=== PATIENT | female | born 1970 | race Caucasian/White ===

== ENCOUNTER → 2016-07-05 | Outpatient (CLI) | payer MEDICARE, MEDICAID ==
--- NOTE | 2016-07-05 16:44 | REP ---
Pelvic sonography: History: Irregular menstrual bleeding. Comparison CT study is from 03/02/2011. Findings: Transabdominal scanning is performed. Uterine dimensions are normal at 7.9 x 2.6 x 4.6 cm. Endometrial echo 0.3 cm thick and centrally placed. Normal ovaries are seen bilaterally. The right ovary measures 2.1 x 1.2 x 2.1 cm. Left ovary dimensions are 1.7 x 1.3 x 1.4 cm. Impression: Normal pelvic sonogram.
== END ==
LOC: M WHC 12:55
PROVIDERS: ATTEND Nurse Practitioner Family
DX: N92.6 Irregular menstruation, unspecified (principal)

== ENCOUNTER → 2017-12-05 | Outpatient (CLI) | payer MEDICARE, MEDICAID | LOC: M WHC 10:35 | DX: Z12.31 Encounter for screening mammogram for malignant neoplasm of breast (principal); Z01.419 Encounter for gynecological examination (general) (routine) without abnormal findings (principal); Z92.0 Personal history of contraception | CPT/HCPCS: 77067 ==

== ENCOUNTER → 2018-10-03 | Outpatient (CLI) | payer MEDICARE, MEDICAID ==
[2018-10-03 20:10] LABS: BLOOD UREA NITROGEN 14 MG/DL (7-18); CALCIUM LEVEL 8.9 MG/DL (8.5-10.1); CARBON DIOXIDE LEVEL 30 MEQ/L (21-32); CHLORIDE LEVEL 104 MEQ/L (98-107); CREATININE FOR GFR 0.76 MG/DL (0.55-1.30); FREE T4 0.82 NG/DL (0.76-1.46); GLOMERULAR FILTRATION RATE > 60.0 (>58); GLUCOSE, FASTING 81 MG/DL (70-100); POTASSIUM SERUM 4.1 MEQ/L (3.5-5.1); SODIUM LEVEL 140 MEQ/L (136-145)
== END ==
LOC: M WUC 16:11
PROVIDERS: ATTEND Family Medicine
DX: E07.9 Disorder of thyroid, unspecified (principal); E78.5 Hyperlipidemia, unspecified

== ENCOUNTER → 2018-12-03 | Outpatient (CLI) | payer MEDICARE, MEDICAID ==
[2018-12-03 13:52] LABS: FREE T4 0.76 NG/DL (0.76-1.46); THYROID STIMULATING HORMONE 3.5 uIU/ML (0.358-3.740)
== END ==
LOC: M WUC 09:39
PROVIDERS: ATTEND Family Medicine
DX: E07.9 Disorder of thyroid, unspecified (principal)

== ENCOUNTER → 2019-02-11 | Outpatient (CLI) | payer MEDICARE, MEDICAID ==
--- NOTE | 2019-02-11 12:47 | REPMRS ---
Patient History The patient states she had a clinical breast exam in 01/2019. Patient is nulliparous. No known family history of cancer. Taking hormonal contraceptives for 17 years. Digital Woman Screen Mammo: February 11, 2019 - Exam #: [id number] Bilateral CC and MLO view(s) were taken. Technologist: Leesa Enriquez, Technologist Prior study comparison: December 05, 2017, bilateral digital woman screen mammo performed at [facility]. March 28, 2016, digital woman screen mammo performed at [facility]. February 26, 2015, digital woman screen mammo performed at [facility]. FINDINGS: There are scattered fibroglandular densities. There has been no change in the appearance of the mammogram from the prior studies. There is a mild amount of scattered fibroglandular density which is fairly symmetric. There is no interval development of dominant mass, architectural distortion, or grouped microcalcification suggestive of malignancy. 3-D tomosynthesis shows no additional findings. Assessment: BI-RADS/ACR category 1 mammogram. Negative Mammogram. Recommendation Routine screening mammogram of both breasts in 1 year (for women over age 40). This patient's Lifetime Breast Cancer Risk is estimated at 12.8 %. This mammogram was interpreted with the aid of an FDA-approved computer-aided dectection system. Electronically Signed By: Jose Cantu MD 02/11/19 [id number]
== END ==
LOC: M WHC 10:22
PROVIDERS: ATTEND Nurse Practitioner Family
DX: Z12.31 Encounter for screening mammogram for malignant neoplasm of breast (principal); Z92.0 Personal history of contraception
CPT/HCPCS: 77063; 77067; G0463

== ENCOUNTER → 2020-04-14 | Outpatient (CLI) | payer MEDICARE, MEDICAID ==
--- NOTE | 2020-04-14 14:24 | REPMRS ---
Patient History The patient states she had a clinical breast exam in 2019. No known family history of cancer. Taking hormonal contraceptives for 17 years. Digital Woman Screen Mammo: April 14, 2020 - Exam #: [id number] Bilateral CC and MLO view(s) were taken. Technologist: Kirstel Conn, Technologist Prior study comparison: February 11, 2019, bilateral digital woman screen mammo performed at [facility]. December 05, 2017, bilateral digital woman screen mammo performed at [facility]. October 17, 2016, bilateral digital mammo screening bilat, performed at [facility]. FINDINGS: The breast tissue is heterogeneously dense. This may lower the sensitivity of mammography. The Volpara volumetric breast density category is: C. There is a moderate amount of heterogeneously dense fibroglandular tissue which is fairly symmetric. There is no interval development of dominant mass, architectural distortion, or grouped microcalcification typical of malignancy. There has been no change in the appearance of the mammogram from the prior studies. 3-D tomosynthesis shows no additional findings. Assessment: BI-RADS/ACR category 1 mammogram. Negative Mammogram. Recommendation Routine screening mammogram of both breasts in 1 year (for women over age 40). This patient's [facility] Lifetime Breast Cancer RIsk is estimated at 12.6 %. This mammogram was interpreted with the aid of an FDA-approved computer-aided dectection system. Electronically Signed By: Jose Cantu MD 04/14/20 [id number]
== END ==
LOC: M WHC 11:33
PROVIDERS: ATTEND Nurse Practitioner Family
DX: Z12.31 Encounter for screening mammogram for malignant neoplasm of breast (principal); Z92.0 Personal history of contraception

== ENCOUNTER 2020-05-22 15:59 | Emergency (ER) | payer MEDICARE, MEDICAID ==
[~2020-05-22] VITALS: Ht 157.5 cm; Wt 61.8 kg
[2020-05-22] MEDS ORDERED: METOCLOPRAMIDE 10 MG TAB PO ONE (19:15)
--- NOTE | 2020-05-22 19:25 | REPVR ---
PROCEDURE INFORMATION: Exam: CT Head Without Contrast Exam date and time: 05/22/2020 7:09 PM Age: 49 years old Clinical indication: Injury or trauma; Other: Hit head against wall; Blunt trauma (contusions or hematomas); Consciousness not specified; Altered mental status/memory loss; Confusion or disorientation TECHNIQUE: Imaging protocol: Computed tomography of the head without contrast. Radiation optimization: All CT scans at this facility use at least one of these dose optimization techniques: automated exposure control; mA and/or kV adjustment per patient size (includes targeted exams where dose is matched to clinical indication); or iterative reconstruction. COMPARISON: No relevant prior studies available. FINDINGS: Brain: Hyperdense partially calcified dural-based mass adjacent to the anterior falx measures 2.8 x 2.7 x 2.7 cm consistent with a meningioma. There is mass effect on the left frontal lobe. Cerebral ventricles: No ventriculomegaly. Bones/joints: Unremarkable. No acute fracture. Paranasal sinuses: Inflammatory changes demonstrated bilaterally in the ethmoid sinuses and left maxillary sinus. Mastoid air cells: Visualized mastoid air cells are well aerated. Soft tissues: Unremarkable. IMPRESSION: 1. Hyperdense partially calcified dural-based mass adjacent to the anterior falx measures 2.8 x 2.7 x 2.7 cm consistent with a meningioma. There is mass effect on the left frontal lobe. 2. Inflammatory changes demonstrated bilaterally in the ethmoid sinuses and left maxillary sinus. Electronically signed by: Guille Swift On 05/22/2020 19:25:05 PM
[2020-05-22 20:03] LABS: HEMATOCRIT 36.7 % (36.0-47.0); HEMOGLOBIN 11.9 g/dl (12.0-15.5); MEAN CORPUSCULAR HEMOGLOBIN 26.3 pg (27.0-33.0); MEAN CORPUSCULAR HGB CONC 32.4 g/dl (32.0-36.5); MEAN CORPUSCULAR VOLUME 81.2 fl (80.0-96.0); PLATELET COUNT, AUTOMATED 407 10^3/uL (150-450); RED BLOOD COUNT 4.52 10^6/uL (4.00-5.40); WHITE BLOOD COUNT 14.3 10^3/uL (4.0-10.0)
[2020-05-22 20:11] LABS: INR 0.91; PROTHROMBIN TIME 12.4 SECONDS (12.5-14.3)
[2020-05-22 20:25] LABS: ALBUMIN 3.7 GM/DL (3.2-5.2); ALT/SGPT 15 U/L (12-78); BILIRUBIN,DIRECT 0.1 MG/DL (0.0-0.2); BILIRUBIN,TOTAL 0.4 MG/DL (0.2-1.0); BLOOD UREA NITROGEN 11 MG/DL (7-18); CARBON DIOXIDE LEVEL 27 MEQ/L (21-32); CHLORIDE LEVEL 99 MEQ/L (98-107); CREATININE FOR GFR 0.74 MG/DL (0.55-1.30); GLOMERULAR FILTRATION RATE > 60.0 (>58); GLUCOSE, FASTING 127 MG/DL (70-100); POTASSIUM SERUM 4.3 MEQ/L (3.5-5.1); SODIUM LEVEL 134 MEQ/L (136-145); TOTAL PROTEIN 7.3 GM/DL (6.4-8.2)
[2020-05-22] MEDS ORDERED: REGL10TA6 PO (20:35)
[2020-05-22 20:47] VITALS: BP 155/90
--- NOTE | 2020-05-25 11:06 | ED PDOC ---
Post-Departure Follow-Up dr nash and dr garcia faxed formal report of ct head fdor fu. Cha Angelo MD May 25, 2020 11:06
== END 2020-05-22 20:52 | disposition home or self-care (01) ==
LOC: M ED 15:59
DX: D32.9 Benign neoplasm of meninges, unspecified (principal)

== ENCOUNTER → 2020-08-24 | Outpatient (CLI) | payer MEDICARE, MEDICAID ==
[~2020-08-24] MED LIST: PROHANCE 279.3MG/ML 15ML VIAL As Ordered ONE; REGL10TA6 PO
--- NOTE | 2020-08-24 13:54 | REPVR ---
PROCEDURE INFORMATION: Exam: MR Head Without and With Contrast Exam date and time: 08/24/2020 12:00 PM Age: 49 years old Clinical indication: Condition or disease; Brain lesion; Additional info: D49.6- brain tumor TECHNIQUE: Imaging protocol: MR of the head without and with intravenous contrast. Contrast material: PROHANCE; Contrast volume: 15 ml; Contrast route: INTRAVENOUS (IV); COMPARISON: CT Head without contrast 05/22/2020 7:09 PM FINDINGS: Limitations: There is motion artifact partially degrading examination. Brain: There is minimal white matter FLAIR hyperintensity compatible with microvascular change although nonspecific. There is unchanged partially calcified dural-based extra-axial mass along left side of falx measuring 2.9 cm x 2.8 cm x 3 cm. There is mass effect on the adjacent frontal lobe. There is no evidence of adjacent edema. This shows restricted diffusion which can be seen in tumors with propensity for gross. There is a 2nd meningioma along the posterior margin right anterior clinoid which is essentially rounded and measures 1.1 cm. This contacts the lateral aspect of the supraclinoid internal carotid artery which is slightly medially displaced but has normal size flow void without encasement. Diffusion images show no parenchymal restricted diffusion or acute infarct. There is no evidence of acute intracranial hemorrhage. Cerebral ventricles: Normal. No ventriculomegaly. Bones/joints: Unremarkable as visualized. Paranasal sinuses: There is right maxillary sinus retention cyst or polyp. There is mucosal thickening in bilateral ethmoid and sphenoid sinus and mucosal thickening versus small retention cyst or polyp near midline in frontal sinus. Mastoid air cells: No significant mastoid effusion. Orbital cavity: Unremarkable. Soft tissues: Unremarkable as visualized. 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 Electronically signed by: Nasima Espino On 08/24/2020 13:54:20 PM
== END ==
LOC: M RAD 10:55
PROVIDERS: ATTEND Neurological Surgery
DX: D49.6 Neoplasm of unspecified behavior of brain (principal)
CPT/HCPCS: 70553; A9576

== ENCOUNTER → 2021-02-19 | Outpatient (CLI) | payer MEDICARE, MEDICAID ==
[~2021-02-19] MED LIST changes: -PROHANCE 279.3MG/ML 15ML VIAL As Ordered ONE
[2021-02-19 07:31] LABS: BASO # 0.1 10^3/uL (0.0-0.2); BASO % 1.4 % (0.0-1.0); EOS # 0.3 10^3/uL (0.0-0.5); EOS % 4.1 % (0.0-3.0); HEMATOCRIT 37.6 % (36.0-47.0); LYMPH # 2.7 10^3/uL (1.5-5.0); LYMPH % 35.3 % (24.0-44.0); MEAN CORPUSCULAR HEMOGLOBIN 26.8 pg (27.0-33.0); MEAN CORPUSCULAR HGB CONC 31.9 g/dl (32.0-36.5); MEAN CORPUSCULAR VOLUME 84.1 fl (80.0-96.0); MONO # 0.5 10^3/uL (0.0-0.8); MONO % 5.9 % (2.0-8.0); PLATELET COUNT, AUTOMATED 358 10^3/uL (150-450); RED BLOOD COUNT 4.47 10^6/uL (4.00-5.40); WHITE BLOOD COUNT 7.6 10^3/uL (4.0-10.0)
[2021-02-19 08:06] LABS: ALBUMIN 3.2 GM/DL (3.2-5.2); ALT/SGPT 13 U/L (12-78); BILIRUBIN,TOTAL 0.3 MG/DL (0.2-1.0); BLOOD UREA NITROGEN 13 MG/DL (7-18); CALCIUM LEVEL 8.2 MG/DL (8.5-10.1); CARBON DIOXIDE LEVEL 29 MEQ/L (21-32); CHLORIDE LEVEL 105 MEQ/L (98-107); CHOLESTEROL LEVEL 173 MG/DL (<200); CHOLESTEROL RISK RATIO 2.035 (<5); CREATININE FOR GFR 0.85 MG/DL (0.55-1.30); GLOMERULAR FILTRATION RATE > 60.0 (>58); GLUCOSE, FASTING 80 MG/DL (70-100); HDL CHOLESTEROL 85 MG/DL (>40); LDL CHOLESTEROL 66 MG/DL (<100); NON-HDL-C 88 MG/DL; POTASSIUM SERUM 4.3 MEQ/L (3.5-5.1); SODIUM LEVEL 139 MEQ/L (136-145); TRIGLYCERIDES LEVEL 109 MG/DL (<150)
== END ==
LOC: M LAB 07:04
PROVIDERS: ATTEND Family Medicine
DX: E78.5 Hyperlipidemia, unspecified (principal); E03.9 Hypothyroidism, unspecified; D72.829 Elevated white blood cell count, unspecified

== ENCOUNTER → 2021-03-01 | Outpatient (CLI) | payer MEDICARE, MEDICAID ==
[~2021-03-01] MED LIST changes: +PROHANCE 279.3MG/ML 15ML VIAL As Ordered ONE
--- NOTE | 2021-03-01 13:51 | REPVR ---
PROCEDURE INFORMATION: Exam: MR Head Without and With Contrast Exam date and time: 03/01/2021 12:20 PM Age: 50 years old Clinical indication: Brain tumor; Benign neoplasm of brain TECHNIQUE: Imaging protocol: MR of the head without and with intravenous contrast. Contrast material: PROHANCE; Contrast volume: 13 ml; Contrast route: INTRAVENOUS (IV); COMPARISON: MRI-Brain W/O FOLL BY WITH 08/24/2020 11:24 AM FINDINGS: Brain: There is an intensely enhancing 3.1 x 3.0 x 2.4 cm extra-axial left parafalcine mass consistent with a meningioma. The mass is inseparable from the superior sagittal sinus. Invasion of the superior sagittal sinus is suspected as seen on the sagittal postcontrast images. There is a second 1.3 x 1.3 x 1.0 cm intensely enhancing mass adjacent to the right anterior clinoid, slightly larger than prior study. The second mass is inseparable from the proximal right middle cerebral and right supraclinoid internal carotid arteries. There are occasional nonspecific foci of high signal abnormality in the meredith radiata and centrum semiovale. These are best seen on the flair images. These foci may represent areas of gliosis, demyelination, and/or chronic ischemic change. Cerebral ventricles: Normal. No ventriculomegaly. Bones/joints: Unremarkable. Paranasal sinuses: There is mild sinus disease. Mastoid air cells: Normal as visualized. No mastoid effusion. Orbital cavity: Unremarkable. Soft tissues: Unremarkable. IMPRESSION: 1. There is an intensely enhancing 3.1 x 3.0 x 2.4 cm extra-axial left parafalcine mass consistent with a meningioma. The mass is inseparable from the superior sagittal sinus. Invasion of the superior sagittal sinus is suspected as seen on the sagittal postcontrast images. There is a second 1.3 x 1.3 x 1.0 cm intensely enhancing mass adjacent to the right anterior clinoid, slightly larger than prior study. The second mass is inseparable from the proximal right middle cerebral and right supraclinoid internal carotid arteries. Direct comparison to prior vascular imaging studies is recommended. In the absence of prior vascular imaging studies for comparison purposes, followup CTA/CTV is recommended. 2. There are occasional nonspecific foci of high signal abnormality in the meredith radiata and centrum semiovale. These are best seen on the flair images. These foci may represent areas of gliosis, demyelination, and/or chronic ischemic change. No acute infarct is identified. Electronically signed by: Abel Duran On 03/01/2021 13:51:12 PM
== END ==
LOC: M RAD 10:28
PROVIDERS: ATTEND Neurological Surgery
DX: D49.6 Neoplasm of unspecified behavior of brain (principal)
CPT/HCPCS: 70553; A9576

== ENCOUNTER → 2021-07-14 | Outpatient (REF) | payer MEDICARE, MEDICAID ==
[~2021-07-14] MED LIST changes: -PROHANCE 279.3MG/ML 15ML VIAL As Ordered ONE
== END ==
LOC: M LAB REF 15:56
PROVIDERS: ATTEND Family Medicine
DX: R26.89 Other abnormalities of gait and mobility (principal); R30.0 Dysuria

== ENCOUNTER → 2021-11-29 | Outpatient (CLI) | payer MEDICARE, MEDICAID ==
[~2021-11-29] MED LIST changes: +PROHANCE 279.3MG/ML 15ML VIAL As Ordered ONE; +PROHANCE 279.3MG/ML 5ML VIAL As Ordered ONE
== END ==
LOC: M PLAIMG 10-11 12:56 → M RAD 10:42
PROVIDERS: ATTEND Neurological Surgery
DX: D32.9 Benign neoplasm of meninges, unspecified (principal); R90.82 White matter disease, unspecified
CPT/HCPCS: 70553; A9576

== ENCOUNTER → 2022-02-23 | Outpatient (CLI) | payer MEDICARE, MEDICAID ==
[~2022-02-23] MED LIST changes: -PROHANCE 279.3MG/ML 15ML VIAL As Ordered ONE; -PROHANCE 279.3MG/ML 5ML VIAL As Ordered ONE
== END ==
LOC: M WHC 07:03
PROVIDERS: ATTEND Family Medicine
DX: Z12.31 Encounter for screening mammogram for malignant neoplasm of breast (principal)

== ENCOUNTER → 2022-05-19 | Outpatient (CLI) | payer MEDICARE, MEDICAID ==
[2022-05-19 13:58] LABS: ALBUMIN 3.5 G/DL (3.2-5.2); ALKALINE PHOSPHATASE 51 U/L (46-116); ALT/SGPT 14 U/L (7.0-40); AST/SGOT 15 U/L (<34); BILIRUBIN,TOTAL 0.4 MG/DL (0.3-1.2); BLOOD UREA NITROGEN 15 MG/DL (9-23); CALCIUM LEVEL 8.7 MG/DL (8.5-10.1); CARBON DIOXIDE LEVEL 26 MMOL/L (20-31); CHLORIDE LEVEL 105 MMOL/L (98-107); CHOLESTEROL LEVEL 188 MG/DL (<200); CHOLESTEROL RISK RATIO 2.51 (<5); CREATININE FOR GFR 0.83 MG/DL (0.55-1.30); GLOMERULAR FILTRATION RATE > 60.0 (>58); GLUCOSE, FASTING 87 MG/DL (60-100); HDL CHOLESTEROL 74.8 MG/DL (>40); LDL CHOLESTEROL 92.4 MG/DL (<100); NON-HDL-C 113 MG/DL; POTASSIUM SERUM 4.3 MMOL/L (3.5-5.1); SODIUM LEVEL 136 MMOL/L (136-145); TOTAL PROTEIN 6.9 G/DL (5.7-8.2); TRIGLYCERIDES LEVEL 104 MG/DL (<150)
[2022-05-19 14:01] LABS: FREE T4 0.82 NG/DL (0.89-1.76)
[2022-05-19 14:02] LABS: THYROID STIMULATING HORMONE 2.315 uIU/ML (0.55-4.78)
== END ==
LOC: M WUC 08:59
PROVIDERS: ATTEND Family Medicine
DX: E78.5 Hyperlipidemia, unspecified (principal); D72.829 Elevated white blood cell count, unspecified; E03.9 Hypothyroidism, unspecified; Z79.899 Other long term (current) drug therapy

== ENCOUNTER → 2022-05-19 | Outpatient (CLI) | payer MEDICARE, MEDICAID ==
[2022-05-19 13:42] LABS: BASO # 0.1 10^3/uL (0.0-0.2); BASO % 1.2 % (0.0-1.0); EOS # 0.2 10^3/uL (0.0-0.5); HEMATOCRIT 39.1 % (36.0-47.0); HEMOGLOBIN 12.5 g/dl (12.0-15.5); LYMPH # 3.2 10^3/uL (1.5-5.0); LYMPH % 32.1 % (24.0-44.0); MEAN CORPUSCULAR HEMOGLOBIN 28.8 pg (27.0-33.0); MEAN CORPUSCULAR VOLUME 90.1 fl (80.0-96.0); MONO # 0.5 10^3/uL (0.0-0.8); MONO % 4.9 % (2.0-8.0); NEUTROPHILS # 5.9 10^3/uL (1.5-8.5); NEUTROPHILS % 59.6 % (36.0-66.0); PLATELET COUNT, AUTOMATED 331 10^3/uL (150-450); RED BLOOD COUNT 4.34 10^6/uL (4.00-5.40); WHITE BLOOD COUNT 9.9 10^3/uL (4.0-10.0)
[2022-05-19 13:57] LABS: ALBUMIN 3.5 G/DL (3.2-5.2); ALKALINE PHOSPHATASE 50 U/L (46-116); ALT/SGPT 15 U/L (7.0-40); AST/SGOT 15 U/L (<34); BILIRUBIN,TOTAL 0.4 MG/DL (0.3-1.2); BLOOD UREA NITROGEN 16 MG/DL (9-23); CARBON DIOXIDE LEVEL 26 MMOL/L (20-31); CHLORIDE LEVEL 105 MMOL/L (98-107); CHOLESTEROL LEVEL 189 MG/DL (<200); CHOLESTEROL RISK RATIO 2.58 (<5); CREATININE FOR GFR 0.86 MG/DL (0.55-1.30); GLOMERULAR FILTRATION RATE > 60.0 (>58); GLUCOSE, FASTING 86 MG/DL (60-100); HDL CHOLESTEROL 73.2 MG/DL (>40); LDL CHOLESTEROL 95.8 MG/DL (<100); NON-HDL-C 116 MG/DL; POTASSIUM SERUM 4.4 MMOL/L (3.5-5.1); SODIUM LEVEL 139 MMOL/L (136-145); TOTAL PROTEIN 6.7 G/DL (5.7-8.2); TRIGLYCERIDES LEVEL 100 MG/DL (<150)
[2022-05-19 14:01] LABS: HEMOGLOBIN A1c 5.1 % (4.0-6.0)
== END ==
LOC: M WUC 08:56
PROVIDERS: ATTEND Psychiatry & Neurology Psychiatry
DX: Z79.899 Other long term (current) drug therapy (principal)

== ENCOUNTER → 2023-07-05 | Outpatient (CLI) | payer MEDICARE, MEDICAID | LOC: M WHC 14:54 | PROVIDERS: ATTEND Nurse Practitioner Family | DX: Z12.31 Encounter for screening mammogram for malignant neoplasm of breast (principal) ==

== ENCOUNTER → 2024-03-12 | Outpatient (CLI) | payer MEDICARE, MEDICAID ==
[2024-03-12 10:11] LABS: BASO # 0.1 10^3/uL (0.0-0.2); BASO % 0.9 % (0.0-1.0); EOS # 0.2 10^3/uL (0.0-0.5); EOS % 1.4 % (0.0-3.0); HEMATOCRIT 37.4 % (36.0-47.0); HEMOGLOBIN 12.1 g/dl (12.0-15.5); LYMPH # 3.3 10^3/uL (1.5-5.0); LYMPH % 29.2 % (24.0-44.0); MEAN CORPUSCULAR HEMOGLOBIN 28.9 pg (27.0-33.0); MEAN CORPUSCULAR HGB CONC 32.4 g/dl (32.0-36.5); MEAN CORPUSCULAR VOLUME 89.5 fl (80.0-96.0); MONO # 0.6 10^3/uL (0.0-0.8); MONO % 5.2 % (2.0-8.0); NEUTROPHILS % 63.1 % (36.0-66.0); PLATELET COUNT, AUTOMATED 358 10^3/uL (150-450); RED BLOOD COUNT 4.18 10^6/uL (4.00-5.40); WHITE BLOOD COUNT 11.2 10^3/uL (4.0-10.0)
[2024-03-12 10:15] LABS: ALBUMIN 3.3 G/DL (3.2-5.2); ALKALINE PHOSPHATASE 64 U/L (35-104); ALT/SGPT 11 U/L (7.0-40); AST/SGOT 9 U/L (<34); BILIRUBIN,TOTAL 0.3 MG/DL (0.3-1.2); BLOOD UREA NITROGEN 14 MG/DL (9-23); CALCIUM LEVEL 9.2 MG/DL (8.5-10.1); CARBON DIOXIDE LEVEL 27 MMOL/L (20-31); CHLORIDE LEVEL 108 MMOL/L (98-107); CHOLESTEROL LEVEL 211 MG/DL (<200); CHOLESTEROL RISK RATIO 2.87 (<5); CREATININE FOR GFR 0.75 MG/DL (0.55-1.30); GLOMERULAR FILTRATION RATE > 60.0 (>51); GLUCOSE, FASTING 87 MG/DL (60-100); HDL CHOLESTEROL 73.4 MG/DL (>40); NON-HDL-C 137.6 MG/DL; POTASSIUM SERUM 4.7 MMOL/L (3.5-5.1); SODIUM LEVEL 139 MMOL/L (136-145); TOTAL PROTEIN 7.3 G/DL (5.7-8.2); TRIGLYCERIDES LEVEL 138 MG/DL (<150)
[2024-03-12 10:34] LABS: HEMOGLOBIN A1c 5.1 % (4.0-6.0)
== END ==
LOC: M PLALAB 08:25
PROVIDERS: ATTEND Physician Assistant
DX: Z79.899 Other long term (current) drug therapy (principal)

== ENCOUNTER → 2025-01-08 | Outpatient (CLI) | payer MEDICARE, MEDICAID | LOC: M WHC 12:54 | PROVIDERS: ATTEND Obstetrics & Gynecology | DX: Z12.31 Encounter for screening mammogram for malignant neoplasm of breast (principal); R92.313 Mammographic fatty tissue density, bilateral breasts ==

== ENCOUNTER → 2025-02-06 | Outpatient (CLI) | payer MEDICARE, MEDICAID ==
[2025-02-06 15:18] LABS: BASO # 0.1 10^3/uL (0.0-0.2); BASO % 0.9 % (0.0-1.0); EOS # 0.1 10^3/uL (0.0-0.5); EOS % 1.4 % (0.0-3.0); LYMPH # 2.6 10^3/uL (1.5-5.0); LYMPH % 25.2 % (24.0-44.0); MONO # 0.6 10^3/uL (0.0-0.8); MONO % 5.5 % (2.0-8.0); NEUTROPHILS # 6.9 10^3/uL (1.5-8.5); NEUTROPHILS % 66.7 % (36.0-66.0); PLATELET COUNT, AUTOMATED 372 10^3/uL (150-450)
[2025-02-06 15:22] LABS: ALT/SGPT 44 U/L (7.0-40); AST/SGOT 28 U/L (<34); CALCIUM LEVEL 9.7 MG/DL (8.5-10.1); CARBON DIOXIDE LEVEL 28 MMOL/L (20-31); CHLORIDE LEVEL 102 MMOL/L (98-107); CHOLESTEROL LEVEL 203 MG/DL (<200); CHOLESTEROL RISK RATIO 2.43 (<5); CREATININE FOR GFR 0.75 MG/DL (0.55-1.30); GLOMERULAR FILTRATION RATE > 90.0 (>51); LDL CHOLESTEROL 102.2 MG/DL (<100); NON-HDL-C 119.8 MG/DL; POTASSIUM SERUM 4.1 MMOL/L (3.5-5.1); SODIUM LEVEL 142 MMOL/L (136-145); TRIGLYCERIDES LEVEL 88 MG/DL (<150)
[2025-02-06 15:27] LABS: ESTIMATED AVERAGE GLUCOSE 111.0 MG/DL (60-110)
== END ==
LOC: M WUC 08:54
PROVIDERS: ATTEND Physician Assistant
DX: Z79.899 Other long term (current) drug therapy (principal)